=== PATIENT | male | born 1960 | race Caucasian/White ===

== ENCOUNTER 2017-02-13 11:44 | Emergency (ER) | payer OTHER ==
[~2017-02-13] VITALS: Ht 172.7 cm; Wt 75.7 kg
[2017-02-13] MEDS ORDERED: SODIUM CHLORIDE 0.9% 1,000 ML IV ONE (12:20)
[2017-02-13] MEDS ORDERED: ONDANSETRON 2MG/ML, 2ML IVPush ONE (12:30)
[2017-02-13] MEDS ORDERED: HYDROmorphone 1 MG/ML, 1ML IVPush PRN (12:30)
[2017-02-13] MEDS ORDERED: SODIUM CHLORIDE FLUSH 10ML SYR IVF ONE (12:30)
[2017-02-13 12:45] LABS: HEMATOCRIT 52.5 % (39.2-51.8); HEMOGLOBIN 17.7 g/dL (13.7-18.0)
[2017-02-13 12:59] LABS: BLOOD UREA NITROGEN 18 mg/dL (7-18)
[2017-02-13 13:11] LABS: ASPARTATE AMINO TRANSFERASE 194 U/L (15-37)
[2017-02-13 14:05] VITALS: BP 129/89
== END 2017-02-13 14:07 | disposition home or self-care (01) ==
LOC: ED 12:59
DX: N50.811 Right testicular pain (principal)
CPT/HCPCS: 36415; 74020; 76870; 80053; 81001; 85025; 87491; 87591; 99285

== ENCOUNTER 2017-02-14 11:25 | Emergency (ER) | payer OTHER ==
[~2017-02-14] VITALS: Ht 172.7 cm; Wt 75.6 kg
[2017-02-14] MEDS ORDERED: SODIUM CHLORIDE 0.9% 1,000ML IVBOLUS ONE (13:00)
[2017-02-14] MEDS ORDERED: OMNIPAQUE 350 MG/ML, 100ML BOTTLE ONE (13:48)
[2017-02-14] MEDS ORDERED: HYDROmorphone 1 MG/ML, 1ML IVPush PRN (14:30)
[2017-02-14] MEDS ORDERED: ONDANSETRON 2MG/ML, 2ML IVPush ONE (14:30)
[2017-02-14] MEDS ORDERED: ONDANSETRON 2MG/ML, 2ML ONE (14:32)
[2017-02-14] MEDS ORDERED: HYDROmorphone 1 MG/ML, 1ML ONE (14:32)
[2017-02-14 14:44] VITALS: BP 185/100
== END 2017-02-14 17:04 | disposition home or self-care (01) ==
LOC: ED 13:23
DX: K40.90 Unilateral inguinal hernia, without obstruction or gangrene, not specified as recurrent (principal); C78.7 Secondary malignant neoplasm of liver and intrahepatic bile duct
CPT/HCPCS: 36415; 74177; 84153; 96361; 96374; 96375; 99285; J1170; J2405; J7030; Q9967